=== PATIENT | female | born 1985 ===

== ENCOUNTER 2017-06-18 19:44 | Emergency (ER) | payer BC ==
[~2017-06-18] VITALS: Ht 157.5 cm; Wt 56.7 kg
[2017-06-18] MEDS ORDERED: DIVA500T4 PO (20:15)
[2017-06-18] MEDS ORDERED: LORAZEPAM 2 MG/1 ML VIAL IV ONE (20:15)
[2017-06-18 20:34] LABS: BASOPHILS % (AUTO) 0.6 % (0.0-2.0); EOSINOPHILS # (AUTO) 0.1 K/uL (0.0-0.7); EOSINOPHILS % (AUTO) 1.4 % (0.0-7.0); HEMATOCRIT 40.1 % (37-47); HEMOGLOBIN 13.6 G/DL (12.0-16.0); LYMPHOCYTES # (AUTO) 2.4 K/UL (0.8-4.8); LYMPHOCYTES % (AUTO) 31.2 % (20.5-51.5); MEAN CORPUSCULAR HEMOGLOBIN 30.9 UUG (27.0-31.0); MEAN CORPUSCULAR HGB CONC 34 g/dL (32.0-37.0); MEAN CORPUSCULAR VOLUME 91.1 FL (81.0-99.0); MONOCYTES # (AUTO) 0.8 K/UL (0.1-1.30); MONOCYTES % (AUTO) 10.3 % (0.0-11.0); NEUTROPHILS # (AUTO) 4.3 K/UL (1.8-8.9); NEUTROPHILS % (AUTO) 56.5 % (38.5-71.5); PLATELET COUNT (AUTO) 212 K/UL (150-450); WHITE BLOOD COUNT (AUTO) 7.6 K/UL (4.0-11.2)
[2017-06-18 20:49] LABS: POTASSIUM 3.8 mmol/L (3.5-5.1)
[2017-06-18] MEDS ORDERED: LORAZEPAM 2 MG/1 ML VIAL ONE (21:01)
--- NOTE | 2017-06-18 21:57 | NUR ---
mse completed, pt had saline d/c'd intact, refused to wait for aci/a rx. pt ambulated w/o diff/took all belongings, left with boyfriend.
[2017-06-18 22:06] VITALS: BP 102/75
== END 2017-06-18 21:57 | disposition home or self-care (01) ==
LOC: ER 19:44
DX: G40.909 Epilepsy, unspecified, not intractable, without status epilepticus (principal)
CPT/HCPCS: 36415; 80048; 80164; 82962; 84703; 85025; 96374; 99284; A4663; J2060